=== PATIENT | male | born 1980 | race Caucasian/White ===

== ENCOUNTER → 2023-04-16 11:00 | Outpatient (BNVA) | payer MEDICAID, SELFPAY | PROVIDERS: PCP Internal Medicine; Referring Provider Internal Medicine; Visit Provider Surgery | DX: K64.8 Other hemorrhoids (principal) | CPT/HCPCS: 46600; 99202 ==

== ENCOUNTER 2023-09-17 09:11 | Outpatient (REF) | payer MEDICAID, SELFPAY ==
[2023-09-17 10:52] LABS: MANUAL DIFF FLAG NO
[2023-09-17 11:01] LABS: Basophils Absolute Auto 0.1 X10*3/uL (0.0-0.2); Eosinophils Absolute Auto 0.1 X10*3/uL (0.0-0.4); Eosinophils Percent Auto 1.8 % (0-4); Hematocrit 41.5 % (42.0-52.0); Hemoglobin 13.7 g/dl (14.0-18.0); Imm Gran Abs Auto 0.02 X10*3/uL (0.00-0.03); Imm Gran Pct Auto 0.3 % (0.0-0.4); Lymphocytes Absolute Auto 2.1 X10*3/uL (1.2-4.9); Lymphocytes Percent Auto 33.7 % (20-40); Mean Corpuscular Volume 90.8 fL (80.0-98.0); Mean Platelet Volume 9.5 fL (9.4-12.4); Monocytes Absolute Auto 0.4 X10*3/uL (0.1-1.2); Monocytes Percent Auto 6.3 % (2-11); Neutrophils Absolute Auto 3.5 x10*3/uL (2.0-8.3); Neutrophils Percent Auto 56.9 % (45-73); Platelet Count 261 X10*3/uL (160-400); Red Blood Count 4.57 X10*6/uL (4.60-5.80); Red Cell Distribution Width 12.5 % (11.0-16.0); White Blood Count 6.2 X10*3/uL (4.8-10.8)
[2023-09-17 11:07] LABS: Alanine Aminotransferase 31 U/L (0-40); Albumin Level 4.6 g/dL (3.5-5.0); Alkaline Phosphatase 69 U/L (39-117); Anion Gap 9 (12-20); Aspartate Amino Transferase 30 U/L (5-37); Bilirubin Total 0.7 mg/dL (0.0-1.0); Blood Urea Nitrogen 14 mg/dL (9-16); Calcium 9.9 mg/dL (8.4-10.2); Carbon Dioxide 30 mmol/L (22-29); Chloride 107 mmol/L (96-108); Cholesterol 205 mg/dL (<200); Estimated Glomerular Filt Rate > 60; Glucose Random 106 mg/dL (60-115); HDL Cholesterol 59 mg/dL (>40); LDL Cholesterol Calculated 136 mg/dL (<100); Potassium 4.2 mmol/L (3.3-5.1); Sodium 142 mmol/L (135-145); Total Protein 7.2 g/dL (6.5-8.0); Triglycerides 53 mg/dL (<150)
== END 2023-09-17 09:12 | disposition home or self-care (01) ==
LOC: HO.10HDL 09:11
PROVIDERS: Visit Provider Internal Medicine
DX: I10 Essential (primary) hypertension (principal); K62.5 Hemorrhage of anus and rectum
CPT/HCPCS: 36415; 80053; 80061; 85025

== ENCOUNTER 2024-09-19 07:55 | Outpatient (REF) | payer MEDICAID, SELFPAY | END 2024-09-19 07:56 | disposition home or self-care (01) | LOC: HO.LAB 07:55 | PROVIDERS: PCP Internal Medicine; Visit Provider Internal Medicine | DX: Z13.89 Encounter for screening for other disorder (principal) ==

== ENCOUNTER 2025-03-22 09:49 | Outpatient (REF) | payer MEDICAID, SELFPAY ==
[2025-03-22 11:47] LABS: Alanine Aminotransferase 40 U/L (0-40); Albumin Level 4.6 g/dL (3.5-5.0); Alkaline Phosphatase 68 U/L (39-117); Anion Gap 12 (12-20); Aspartate Amino Transferase 30 U/L (5-37); Blood Urea Nitrogen 14 mg/dL (9-16); Calcium 9.5 mg/dL (8.4-10.2); Carbon Dioxide 26 mmol/L (22-29); Chloride 108 mmol/L (96-108); Cholesterol 229 mg/dL (<200); Estimated Glomerular Filt Rate > 60; Glucose Random 112 mg/dL (60-115); HDL Cholesterol 69 mg/dL (>40); LDL Cholesterol Calculated 151 mg/dL (<100); Potassium 4.3 mmol/L (3.3-5.1); Sodium 142 mmol/L (135-145); Total Protein 7.4 g/dL (6.5-8.0); Triglycerides 48 mg/dL (<150)
== END 2025-03-22 09:50 | disposition home or self-care (01) ==
LOC: HO.10HDL 09:49
PROVIDERS: Visit Provider Internal Medicine
DX: Z00.00 Encounter for general adult medical examination without abnormal findings (principal); E78.00 Pure hypercholesterolemia, unspecified; L73.8 Other specified follicular disorders; I10 Essential (primary) hypertension
CPT/HCPCS: 36415; 80053; 80061

== ENCOUNTER 2025-10-26 10:43 | Outpatient (AMB) | payer OTHER, SELFPAY ==
--- NOTE | 2025-10-26 10:45 | MHC.PC.OV ---
Vital Signs 10/26/25 10:56 Height 5 ft 8 in Weight 173 lb BMI 26.3 BP 119/61 Blood Pressure Location Lt brachial Position Sitting Respiration 16 Pulse 69 Pulse Source Pulse Oximeter Temp 97.5 F Temp Source Oral Pulse Oximetry (%) 100 Oxygen Delivery Method Room Air Intake Visit Reasons: Fertility treatment Intake Note: patient here for new patient visit to speak to provider about fertility treatment Case Management Specialist Required: No Allergies No Known Allergies Allergy (Verified 10/26/25 10:49) Medication List - Last Reconciled 10/26/25 by Williams Paul MD No Known Home Meds Tobacco use date assessed: 10/26/25 Dental Screening Dental Screen Date: 10/26/25 Did you have a dental visit in the last 12 months?: Yes Did you have a dental problem in the last 6 months where you did not have access to dental care?: No Was dental information given to patient?: Patient has dentist HPI Fertility treatment HPI Details New Patient? ?? Prior PCP:? [facility] [place] Primary Care Last office visit/CPE:? 18 mos ago Acute issue(s):? Infertility. Patient and been unable to conceive > 1 yr. She has been seen at infertility clinic. Patient would like to see Urology. ?? PMHx:? Denies SurgHx:? R Leg ORIF FHx:? Mom: Kidney Stones. Dad: Healthy SocHx: Quit Cigs 5 yrs ago. EtOH Rarely 1-2 dr. No drugs [facility], [facility] Medical History Prolapsed hemorrhoids Surgical History History of wisdom tooth extraction History of ankle surgery Social History (Updated 10/26/25 @ 11:01 by HERNAN Ramirez) Housing: House Alcohol intake: current Alcohol intake frequency: holidays/special occasions only Patient Tobacco Use Status: Former Tobacco user e-Cigarette/Vaping Use: Never Used Second Hand Smoke Exposure: No Use of substances other than those prescribed or required for medical reasons: No service: No Current occupational status: unemployed Current occupational exposures/hazards: No Cognitive needs: No Hearing needs: No Vision needs: No Questionnaire PHQ-9 Over the last 2 weeks, how often have you been bothered by any of the following problems? 1. Little interest or pleasure in doing things: not at all 2. Feeling down, depressed, or hopeless: not at all 3. Trouble falling or staying asleep, or sleeping too much: not at all 4. Feeling tired or having little energy: not at all 5. Poor appetite or overeating: not at all 6. Feeling bad about yourself - or that you are a failure or have let yourself or your family down: not at all 7. Trouble concentrating on things, such as reading the newspaper or watching television: not at all 8. Moving or speaking so slowly that other people could have noticed. Or the opposite - being so fidgety or restless that you have been moving around a lot more than usual: not at all 9. Thoughts that you would be better off or of hurting yourself in some way: not at all Total score: 0 Depression Screening Interpretation: Negative Depression Screening Done: Yes 05415 - PHQ-9 Billing: Yes Source: Developed by Drs. Robi Silver, Betsey Mckenzie, Sonu Turner and colleagues, with an educational aspen from [employer]. Thrive Questionnaire Date Thrive assessed: 10/26/25 I am a: Patient What is your living situation today?: I have a steady place to live Within the past 12 months, did the food you bought not last and you didn't have the money to get more?: Never true Within the past 12 months, did you worry whether your food would run out before you got money to buy more?: Never true Do you have trouble paying for medicines?: No Do you have trouble getting transportation to medical appointments?: No Do you have trouble paying your heating and electricity bill?: No Do you have trouble taking care of your child, family member or friend?: No Do you have trouble with day-to-day activities such as bathing, preparing meals, shopping, managing finances, etc.?: No Are you currently unemployed and looking for a job?: Yes Are you interested in more education?: I choose not to answer this question Please select the resources that you would like help with: None Currently or been in a relationship where the following occur: No concerns reported THRIVE Score: 0 AUDIT C Alcohol Use Questionnaire (AUDIT-C) 1. How often do you have a drink containing alcohol?: Monthly or less 2. How many drinks containing alcohol do you have on a typical day when you are drinking?: 3 or 4 3. How often do you have six or more drinks on one occasion?: Never Total Score: 2 Score Reviewed/Action Taken: Yes YUE-7 AMB Questionnaire YUE-7 Date YUE - 7 assessed: 10/26/25 Feeling nervous, anxious, or on edge: 0 = Not at all Not being able to stop or control worryin = Not at all Worrying too much about different things: 0 = Not at all Trouble relaxin = Not at all Being so restless that it is hard to sit still: 0 = Not at all Becoming easily annoyed or irritable: 0 = Not at all Feeling afraid as if something awful might happen: 0 = Not at all Total YUE-7 score (0-4 normal; 5-9 mild; 10-14 moderate; 15-21 severe): 0 Source: Developed by Drs. Robi Silver, Betsey Mckenzie, Sonu Turner and colleagues, with an educational aspen from [employer]. YUE-7 Assessment Billing YUE-7 Assessment Tool: YUE-7 Assessment 55379 Review of Systems Const Denies chills, Denies fatigue, Denies fever(s), Denies headache(s) and Denies weakness ENT Denies dizziness and Denies headache(s) Card Denies chest pain, Denies lightheadedness, Denies dyspnea and Denies other (Palpitations) Resp Denies cough, Denies dyspnea, Denies wheezing and Denies other ( shortness of breath) Musc Denies numbness and Denies tingling Neuro Denies dizziness, Denies headache(s), Denies numbness, Denies tingling, Denies paresthesias and Denies weakness Psych Denies anxiety and Denies depression Endo Denies fatigue Aller/Immun Denies wheezing Physical exam (Primary Care) Vital Signs: Last Vital Signs Temp 97.5 F 10/26/25 10:56 Pulse 69 10/26/25 10:56 Resp 16 10/26/25 10:56 BP 119/61 10/26/25 10:56 Pulse Ox 100 10/26/25 10:56 Oxygen Delivery Method Room Air 10/26/25 10:56 BMI result Body Mass Index 26.3 Tobacco/Smoking Status: Tobacco use Status Tobacco use date assessed 10/26/25 10/26/25 10:50 Patient Tobacco Use Status Former Tobacco user 10/26/25 11:01 e-Cigarette/Vaping Use Never Used 10/26/25 11:01 PHQ-9: PHQ-9 Score PHQ-9: Total score 0 10/26/25 10:59 Depression Screening Interpretation: Negative Thrive Assessment: Date of Thrive Assessment Date Thrive assessed 10/26/25 10/26/25 10:56 Currently or been in a relationship where the following occur: No concerns reported Const General: no acute distress and well developed Nutritional Appearance: well nourished Orientation/consciousness: patient oriented x3 HENMT Head: Yes normocephalic and Yes atraumatic Eyes General: appearance normal, both eyes and all related structures Pupils: Equal, round and reactive pupils present EOM: EOMs intact bilaterally Resp Effort & Inspection: normal respiratory effort Auscultation: clear to auscultation bilaterally Cardio Rate: regular rate Rhythm: regular rhythm Heart sounds: S1 normal heart sound present, S2 normal heart sound present, no gallops, no murmurs and no rubs Neuro General: patient oriented x3 and gait normal Cranial nerves: Yes Equal, round and reactive pupils present Psych Affect: normal affect Coding Level of Care Code Est Pt Level 3 (02750) Diagnoses Infertility male N46.9 Laboratory exam ordered as part of routine general medical examination Z00.00 Additional Codes YUE-7 Assessment Billing - YUE-7 Assessment Tool: YUE-7 Assessment 64904 ([id number]) PHQ-9 - 58613 - PHQ-9 Billing: Yes ([id number]) Assessment & Plan Assessment & Plan (1) Infertility male: Code(s): N46.9 - Male infertility, unspecified Category: Medical Plan: Infertility. Patient and been unable to conceive > 1 yr. She has been seen at infertility clinic. Patient would like to see Urology. Referred (2) Laboratory exam ordered as part of routine general medical examination: Code(s): Z00.00 - Encounter for general adult medical examination without abnormal findings Category: Medical Plan: Check labs Orders: Orders Lipid Panel Today Z00.00 - Encounter for general adult medical examination without abnormal findings Prostate Specific Antigen Scr Today Z12.5 - Encounter for screening for malignant neoplasm of prostate Comprehensive [place]. Panel Fast Today Z00.00 - Encounter for general adult medical examination without abnormal findings Complete Blood Count Auto Diff Today Z00.00 - Encounter for general adult medical examination without abnormal findings Microalbumin, Random (w Creat) Today I10 - Essential (primary) hypertension TSH reflex Free T4 Today Z00.00 - Encounter for general adult medical examination without abnormal findings UA CC w/rflx Micro + Cult Today Z00.00 - Encounter for general adult medical examination without abnormal findings Insulin Today Z00.00 - Encounter for general adult medical examination without abnormal findings Ferritin Today Z00.00 - Encounter for general adult medical examination without abnormal findings Vitamin D 25-OH Total Today E55.9 - Vitamin D deficiency, unspecified Homocysteine Today N46.9 - Male infertility, unspecified DHEA Sulfate Today N46.9 - Male infertility, unspecified Referrals Urology Referral N46.9 - Male infertility, unspecified
[2025-10-26 10:56] VITALS: BP 119/61; PULSE 69; RESP 16; TEMP 36.4; O2SAT 100; BMI 26.3
--- OUTSIDE RECORDS SUMMARY | 2025-10-26 13:41 | XMS_ITS | Clinical Summary ---
Author Organization [facility]erg[facility] With [facility] Address [address] [place], [place] [id number] Phone Care Team Providers Care Handle Maker Name Role Phone María Teague MD Primary Care Provider Social History Tobacco Use Types Packs/Day Years Used Date Smoking Tobacco: Never Assessed Education Answer Date Recorded Are you interested in more education? Not on willie e 10/20/2024 Are you concerned about learning? Not on file 10/20/2024 No 10/20/2024 No 10/20/2024 Digital Access Answer Date Recorded No 10/20/2024 No 10/20/2024 Reliable internet access at home? Not on file 10/20/2024 Device with a working camera? Not on file Sex and Gender Information Value Date Recorded Sex Assigned at Not on file Legal Sex Male 12:56 PM EST Gender Identity Not on file Sexual Orientation Not on file Plan of Treatment Not on file Medical Devices Not on file Insurance [facility] [place] [address] PCC [facility] P[facility] P[facility] P[facility] Care Teams Handle Maker Relationship Specialty Start Date End Date María Teague MD [address] [place] [address] [place] [address] PCP - General 10/20/24 Additional Source Comments The information contained in this document represents components of the legal health record. It is not the complete legal health record.[facility]
== END 2025-10-26 11:14 | disposition home or self-care (01) ==
PROVIDERS: PCP Family Medicine; Visit Provider Family Medicine
DX: N46.9 Male infertility, unspecified (principal); Z00.00 Encounter for general adult medical examination without abnormal findings

== ENCOUNTER → 2025-10-26 10:43 | Outpatient (BNVA) | payer OTHER, SELFPAY | PROVIDERS: PCP Internal Medicine; Visit Provider Family Medicine | DX: Z00.00 Encounter for general adult medical examination without abnormal findings (principal); N64.9 Disorder of breast, unspecified; I10 Essential (primary) hypertension | CPT/HCPCS: 96127 ==

== ENCOUNTER 2025-10-27 09:21 | Outpatient (REF) | payer OTHER, SELFPAY ==
--- OUTSIDE RECORDS SUMMARY | 2025-10-27 09:58 | XMS_ITS | Clinical Summary ---
Author Organization [facility] Address [address] [place], [place] [phone] Phone Care Team Providers Care Information Assoc Name Role Phone María Teague MD Primary [...] file Medical Devices Not on file Insurance [facility] [place] [address] [address] [place] [address] PCC [facility] Care Teams Information Assoc Relationship Specialty Start Date End Date María Teague MD [address] [place] [address] [place] [address] PCP - General 10/20/24 Additional Source Comments The information contained in this document represents components of the legal health record. It is not the complete legal health record.[facility]
[2025-10-27 12:41] LABS: MANUAL DIFF FLAG NO
[2025-10-27 12:47] LABS: Appearance Urine Clear; Glucose Urine UA Negative (Negative); PH 7.0 (5.0-9.0); Specific Gravity - Urine 1.020 (1.005-1.025)
[2025-10-27 12:56] LABS: Hematocrit 41.0 % (42.0-52.0); Hemoglobin 13.3 g/dl (14.0-18.0); Imm Gran Pct Auto 0.3 % (0.0-0.4); Mean Corpuscular HGB Conc 32.4 g/dl (31.0-36.0); Mean Corpuscular Hemoglobin 30.3 pg (27.0-33.0); Mean Corpuscular Volume 93.4 fL (80.0-98.0); Platelet Count 257 X10*3/uL (160-400); Red Blood Count 4.39 X10*6/uL (4.60-5.80); White Blood Count 7.0 X10*3/uL (4.8-10.8)
[2025-10-27 12:57] LABS: Imm Gran Abs Auto 0.02 X10*3/uL (0.00-0.03); Lymphocytes Absolute Auto 2.4 X10*3/uL (1.2-4.9); NRBC Abs Auto 0.000 X10*3/uL (0.0-0.012); NRBC Pct Auto 0.0 /100WBC (0.0-0.2)
[2025-10-27 13:36] LABS: Alanine Aminotransferase 39 U/L (0-40); Albumin Level 4.6 g/dL (3.5-5.0); Alkaline Phosphatase 55 U/L (39-117); Anion Gap 10 (12-20); Aspartate Amino Transferase 32 U/L (5-37); Blood Urea Nitrogen 16 mg/dL (9-16); Calcium 10.0 mg/dL (8.4-10.2); Carbon Dioxide 27 mmol/L (22-29); Chloride 108 mmol/L (96-108); Cholesterol 212 mg/dL (<200); Estimated Glomerular Filt Rate > 60; HDL Cholesterol 58 mg/dL (>40); Potassium 4.5 mmol/L (3.3-5.1); Sodium 140 mmol/L (135-145); Total Protein 6.7 g/dL (6.5-8.0); Triglycerides 50 mg/dL (<150)
[2025-10-27 13:58] LABS: Ferritin 75 ng/mL (20-250)
== END 2025-10-27 09:22 | disposition home or self-care (01) ==
LOC: HO.WFDLDS 09:21
PROVIDERS: Visit Provider Family Medicine
DX: Z00.00 Encounter for general adult medical examination without abnormal findings (principal); Z12.5 Encounter for screening for malignant neoplasm of prostate; I10 Essential (primary) hypertension; E55.9 Vitamin D deficiency, unspecified; N46.9 Male infertility, unspecified; Z13.0 Encounter for screening for diseases of the blood and blood-forming organs and certain disorders involving the immune mechanism
CPT/HCPCS: 36415; 80053; 80061; 81003; 82043; 82306; 82570; 82627; 82728; 83525; 84153; 84443; 85025

== ENCOUNTER 2025-10-28 09:30 | Outpatient (REF) | payer OTHER, SELFPAY ==
--- OUTSIDE RECORDS SUMMARY | 2025-10-28 09:33 | XMS_ITS | Clinical Summary ---
Author Organization [facility] Address [address] [place], [place] [phone] Phone Care Team Providers Care Director Enterprise Sales Name Role Phone María Teague MD Primary [...] file Medical Devices Not on file Insurance [facility] [address] [address] [place] [address] [facility]CC [facility] PCC [facility] PCC Care Teams Director Enterprise Sales Relationship Specialty Start Date End Date María Teague MD [address] [place] [address] [place] [address] PCP - General 10/20/24 Additional Source Comments The information contained in this document represents components of the legal health record. It is not the complete legal health record.[facility]
== END 2025-10-28 09:31 | disposition home or self-care (01) ==
LOC: HO.LAB 09:30
PROVIDERS: PCP Family Medicine; Visit Provider Family Medicine
DX: N46.9 Male infertility, unspecified (principal)
CPT/HCPCS: 36415; 83090